=== PATIENT | male | born 1970 | race Two or more races ===

== ENCOUNTER 2019-09-04 09:04 | Outpatient (CLI) | payer OTHER | END 2019-09-04 09:12 | disposition home or self-care (01) | LOC: RAD 09:04 | PROVIDERS: ATTEND Orthopaedic Surgery | DX: M25.511 Pain in right shoulder (principal) ==

== ENCOUNTER 2021-10-02 11:07 | Outpatient (CLI) | payer OTHER ==
[2021-10-03] MEDS ORDERED: COZAAR100 MG PO (09:46)
== END 2021-10-02 12:10 | disposition home or self-care (01) ==
LOC: RAD 11:07
PROVIDERS: ATTEND Orthopaedic Surgery
DX: M25.562 Pain in left knee (principal)

== ENCOUNTER 2021-10-03 08:58 | Outpatient (CLI) | payer OTHER ==
[~2021-10-03] VITALS: Ht 176 cm; Wt 143.3 kg
[2021-10-03] MEDS ORDERED: COZAAR100 MG PO (09:46)
== END 2021-10-03 09:11 | disposition home or self-care (01) ==
LOC: LAB 08:58
PROVIDERS: ATTEND Orthopaedic Surgery
DX: D64.9 Anemia, unspecified (principal); D68.8 Other specified coagulation defects; N39.0 Urinary tract infection, site not specified; E11.9 Type 2 diabetes mellitus without complications

== ENCOUNTER 2021-10-24 07:16 | Day surgery (SDC) | payer OTHER ==
[~2021-10-24 07:16] MED LIST: COZAAR100 MG PO
== END 2021-10-24 15:00 | disposition home or self-care (01) ==
LOC: CIR.AMB 07:16
PROVIDERS: ATTEND Orthopaedic Surgery
DX: M23.262 Derangement of other lateral meniscus due to old tear or injury, left knee (principal); M65.862 Other synovitis and tenosynovitis, left lower leg; M94.262 Chondromalacia, left knee; Z88.6 Allergy status to analgesic agent; I10 Essential (primary) hypertension; Z86.16 Personal history of COVID-19; Z87.891 Personal history of nicotine dependence